=== PATIENT | male | born 1985 | race Caucasian/White ===

== ENCOUNTER 2021-02-26 18:07 | Emergency (ER) | payer SELFPAY ==
[~2021-02-26] VITALS: Ht 162.6 cm; Wt 77.0 kg
[2021-02-26] MEDS ORDERED: SODIUM CHLORIDE 0.9% 1,000 ML IV ONE (20:00)
[2021-02-26 20:38] LABS: HEMATOCRIT. 40.5 % (42.0-52.0); HEMOGLOBIN. 14.3 g/dL (14.0-18.0); MEAN CORPUSCULAR HEMOGLOBIN 34.8 pg (28.0-32.0); MEAN CORPUSCULAR VOLUME 98.6 fL (80.0-94.0); MEAN PLATELET VOLUME 8.5 fl (7.4-10.4); PLATELET 99 x1000/uL (130-400); RED BLOOD CELL COUNT 4.11 mill/uL (4.7-6.1); RED CELL DISTRIBUTION WIDTH 13.3 % (11.6-14.6)
[2021-02-26 20:43] LABS: CHLORIDE 94 mEq/L (98-107)
[2021-02-26 20:47] LABS: ETHANOL BLOOD < 10 mg/dL
[2021-02-26 21:00] LABS: PLATELET ESTIMATE DECREASED
[2021-02-26 23:23] VITALS: BP 135/86
== END 2021-02-26 23:34 | disposition home or self-care (01) ==
LOC: ER 18:07
DX: E86.0 Dehydration (principal); F10.229 Alcohol dependence with intoxication, unspecified; Y90.0 Blood alcohol level of less than 20 mg/100 ml
CPT/HCPCS: 36415; 80053; 80320; 85025; 96360; 99283; J7030; G0480